=== PATIENT | female | born 1980 | race Caucasian/White ===

== ENCOUNTER 2020-12-05 02:52 | Emergency (ER) | payer MEDICAID ==
[2020-12-05] MEDS ORDERED: Diphtheria,Pertussis(Acell),Tetanus Vaccine 0.5 ML Syringe IM ONE (02:56)
[2020-12-05] MEDS ORDERED: Lidocaine 2% with EPINEPHrine 1:100,000 20 ML MDV INJECT ONE (02:56)
[2020-12-05] MEDS ORDERED: Ondansetron 4 MG Tab.DIS PO ONE (02:57)
[2020-12-05] MEDS ORDERED: Sodium Chloride 0.9% 10 ML Syringe FLUSH PRN (02:59)
[2020-12-05] MEDS ORDERED: fentaNYL 50 MCG/ML SDV IVPUSH ONE (02:59)
[2020-12-05] MEDS ORDERED: Ondansetron 4 MG/2 ML SDV IV ONE (02:59)
[2020-12-05] MEDS ORDERED: Lactated Ringers 1,000 ML IV ONE (03:06)
--- NOTE | 2020-12-05 03:11 | EDM.PDOC ---
ED HPI GENERAL MEDICAL PROBLEM - General Chief Complaint: Laceration Stated Complaint: laceration Time Seen by Provider: 12/05/20 02:52 Source of Information: Reports: Patient, Family History Limitations: Reports: No Limitations - History of Present Illness INITIAL COMMENTS - FREE TEXT/NARRATIVE: Patient comes emergency department today from home with her with concerns of a fall and head injury. Just prior to arrival earlier tonight the patient was drinking alcohol when she was at home with her when she lost her balance fell striking the right side of her head on the corner of a table. The patient is unsure if she lost consciousness although the states that she never lost consciousness and she was alert the whole time. She complains of severe pain to the right side of her head just above her ear. She has had a headache most of the day her headache is no worse now than it was earlier. She has no weakness dizziness lightheadedness. No diplopia. No vertigo. No ringing in her ears. She denies any neck pain. She denies any back pain. She denies any chest pain shortness of breath or difficulty breathing. She does admit to drinking a large amount of alcohol tonight. She has no abdominal pain. She does feel anxious nauseated and shaky. She has not been vomiting. No back pain. No other injury other than to the injury to her right scalp. She denies any change in the functionality of her upper or lower extremities. She denies any change in the sensation of her upper or lower extremities. She is unsure of when her last tetanus shot was. No Covid exposure no Covid symptoms. - Related Data Allergies Allergy/AdvReac Type Severity Reaction Status Date / Time phenol [From Chloraseptic] Allergy Rash Verified 12/05/20 02:56 sertraline Allergy Anxiety Verified 12/05/20 02:56 sodium phenolate Allergy Rash Verified 12/05/20 02:56 [From Chloraseptic] Past Medical History - Past Health History Medical/Surgical History: Denies Medical/Surgical History Respiratory History: Reports: Other (See Below) Other Respiratory History: Recent pneumonia Gastrointestinal History: Reports: GERD, Other (See Below) Other Gastrointestinal History: referr to health Genitourinary History: Reports: Other (See Below) Other Genitourinary History: Cyst removed from labia [employer] HEL[employer] History: Reports: Other [employer] HEL[employer] History: NA Musculoskeletal History: Reports: Back Pain, Chronic, Fibromyalgia Neurological History: Reports: Migraines Psychiatric History: Reports: Depression Dermatologic History: Reports: Other (See Below) Other Dermatologic History: History of shingles - Past Surgical History Female Surgical History: Reports: Other (See Below) ED ROS GENERAL - Review of Systems Review Of Systems: Comprehensive ROS is negative, except as noted in HPI. ED EXAM, SKIN/RASH Exam: See Below Text/Narrative:: She is alert appears in mild to moderate distress. Smells highly of alcoholic beverages. Exam Limited By: No Limitations General Appearance: Alert, WD/WN, No Apparent Distress Eye Exam: Bilateral Eye: EOMI, PERRL Ears: Normal External Exam, Normal Canal, Normal TMs Nose: Normal Inspection, Normal Mucosa Throat/Mouth: Normal Inspection, Normal Lips, Normal Teeth, Normal Gums, Normal Oropharynx, Normal Voice, No Airway Compromise Head: Normocephalic. No: Other (On the right parietal region just above her right ear there is about the size of a baseball area of hematoma and swelling. There is no overt bony deformities or crepitus. There is about a 2cm scalp laceration that is not bleeding at this time. Rest of the scalp is atraumatic.) Neck: Normal Inspection, Supple, Non-Tender, Full Range of Motion. No: Tender Lateral, Tender Midline Respiratory/Chest: No Respiratory Distress, Lungs Clear, Normal Breath Sounds, No Accessory Muscle Use, Chest Non-Tender Cardiovascular: Normal Peripheral Pulses, Regular Rate, Rhythm Peripheral Pulses: 2+: Radial (L), Radial (R), Posterior Tibial (L), Posterior Tibial (R), Dorsalis Pedis (L), Dorsalis Pedis (R) GI/Abdominal: Normal Bowel Sounds, Soft, Non-Tender (Female) Exam: Deferred Rectal (Female) Exam: Deferred Back Exam: Normal Inspection, Full Range of Motion Extremities: Normal Inspection, Normal Range of Motion, Non-Tender, No Pedal Edema, Normal Capillary Refill Neurological: Alert, Oriented, CN II-XII Intact, Normal Cognition, Normal Reflexes, No Motor/Sensory Deficits Psychiatric: Normal Affect, Normal Mood Skin: Warm, Dry, Intact, Normal Color, No Rash ED SKIN PROCEDURES - Laceration/Wound Repair Right Posterior Lateral Other Appearance: Subcutaneous, Linear Distal NVT: Neuro & Vascular Intact Anesthetic Type: Local Local Anesthesia - Lidocaine (Xylocaine): 2% with EPI Local Anesthetic Volume: Other (7) Skin Prep: Chlorhexidine (Hibiciens), Saline Exploration/Debridement/Repair: Wound Explored, In a Bloodless Field, Explored to Base Closed with: [place] Lac/Wound length In cm: 2.5 (posterolateral parietal scalp right. ) # of Sutures: 10 Suture Size: 3-0 # of Sutures: 2 (A small arterial scalp bleeder was tied off with chromic with good hemostasis. ) Repaired with: Chromic Tetanus Status Addressed: Yes Complications: No Course - Vital Signs Last Recorded V/S: Last Vital Signs Temp 98.3 F 12/05/20 03:00 Pulse 99 12/05/20 03:00 Resp 18 12/05/20 03:00 BP 148/94 H 12/05/20 03:00 Pulse Ox 98 12/05/20 03:00 - Orders/Labs/Meds Orders: Active Orders 24 hr Category Date Time Status Vaccines to be Administered [RC] PER UNIT ROUTINE Care 12/05/20 02:56 Active Cervical Spine wo Cont [CT] Stat Exams 12/05/20 02:56 Taken Head wo Cont [CT] Stat Exams 12/05/20 02:56 Taken Sodium Chloride 0.9% [Saline Flush] Med 12/05/20 02:59 Active 10 ml FLUSH ASDIRECTED PRN Peripheral IV Insertion Adult [OM.PC] Stat Oth 12/05/20 02:59 Ordered Medication Orders Sodium Chloride (Saline Flush) 10 ml FLUSH ASDIRECTED PRN PRN Reason: Keep Vein Open Labs: Laboratory Tests 12/05/20 12/05/20 12/05/20 Range/Units 03:25 03:25 03:25 WBC 8.2 (4.0-10.0) x10^3/uL RBC 4.41 (4.00-5.50) x10^6/uL Hgb 13.5 (12.0-16.0) g/dL Hct 40.2 (33.0-47.0) % MCV 91.2 (78.0-93.0) fL MCH 30.6 (26.0-32.0) pg MCHC 33.6 (32.0-36.0) g/dL RDW Coeff of Virgen 13.1 (10.0-15.0) % Plt Count 212 (130-400) x10^3/uL Neut % (Auto) 53.1 (50.0-80.0) % Lymph % (Auto) 38.2 (25.0-50.0) % [place] % (Auto) 7.6 (2.0-11.0) % Eos % (Auto) 1.0 (0.0-4.0) % Baso % (Auto) 0.1 L (0.2-1.2) % PT 9.7 L (9.9-12.5) SEC INR 0.9 L (2.0-3.5) APTT 26.1 (25.6-32.8) SEC Sodium 145 (136-145) mmol/L Potassium 3.4 L (3.5-5.1) mmol/L Chloride 106 (98-107) mmol/L Carbon Dioxide 25 (21-32) mmol/L Anion Gap 17.4 H (5-15) mmol/L BUN 9 (7-18) mg/dL Creatinine 0.7 (0.55-1.02) mg/dL Est Cr Clr Drug Dosing TNP Estimated GFR (MDRD) > 60 Glucose 89 (74-106) mg/dL Calcium 8.1 L (8.5-10.1) mg/dL Corrected Calcium 8.50 (8.5-10.1) mg/dL Total Bilirubin 0.2 (0.2-1.0) mg/dL AST 17 (15-37) U/L ALT 26 (14-59) U/L Alkaline Phosphatase 56 (46-116) U/L Total Protein 6.8 (6.4-8.2) g/dL Albumin 3.5 (3.4-5.0) g/dL Globulin 3.3 Albumin/Globulin Ratio 1.06 Ethyl Alcohol 210 H (0-3) mg/dL Meds: Medications Generic Name Dose Route Start Last Admin Trade Name Freq PRN Reason Stop Dose Admin Sodium Chloride 10 ml 12/05/20 02:59 Saline Flush FLUSH ASDIRECTED PRN Keep Vein Open Discontinued Medications Generic Name Dose Route Start Last Admin Trade Name Freq PRN Reason Stop Dose Admin Diphtheria/Tetanus/Acell Pertussis 0.5 ml 12/05/20 02:56 12/05/20 03:07 Boostrix IM 02/19/21 02:57 0.5 ml .ONCE ONE Administration Fentanyl 50 mcg 12/05/20 02:59 12/05/20 03:07 Fentanyl IVPUSH 12/05/20 03:00 50 mcg ONETIME ONE Administration Lactated Ringer's 1,000 mls @ 999 mls/hr 12/05/20 03:06 12/05/20 03:14 Ringers, Lactated IV 12/05/20 04:06 999 mls/hr ONETIME ONE Administration Lidocaine/Epinephrine 20 ml 12/05/20 02:56 12/05/20 03:16 Xylocaine 2% With Epinephrine 1:100,000 INJECT 12/05/20 02:57 5 ml ONETIME ONE Administration Ondansetron HCl 4 mg 12/05/20 02:57 Zofran Odt PO 12/05/20 02:58 ONETIME ONE Ondansetron HCl 4 mg 12/05/20 02:59 12/05/20 03:07 Zofran IV 12/05/20 03:00 4 mg ONETIME ONE Administration - Radiology Interpretation Free Text/Narrative:: CT of the head per radiology no acute intracranial findings. Right posterior lateral parietal scalp hematoma CT cervical spine per radiology no acute fracture or dislocation. Degenerative changes. - Re-Assessments/Exams Free Text/Narrative Re-Assessment/Exam: 12/05/20 03:11 Due to her nausea and shakiness IV was established. Labs are drawn. Zofran 4 mg IV push. Fentanyl 50 mcg IV push for pain. Tetanus immunization was updated. 12/05/20 04:30 Laboratory evaluation with a normal CBC. Normal coags. Potassium 3.4 normal creatinine normal liver enzymes Alcohol level 210. She had good improvement with her pain. Her nausea was controlled. Please see the procedure note for the repair of the scalp laceration. There was a small arterial bleeder and there that I did have to tie off with some chromic sutures. Jon for the approximation of the scalp laceration. Departure - Departure Time of Disposition: 04:31 Disposition: Home, Self-Care 01 Clinical Impression: Laceration of scalp Qualifiers: Encounter type: initial encounter Qualified Code(s): S01.01XA - Laceration without foreign body of scalp, initial encounter Acute alcohol intoxication Qualifiers: Complication of substance-induced condition: uncomplicated Qualified Code(s): F10.920 - Alcohol use, unspecified with intoxication, uncomplicated - Discharge Information Forms: ED Department Discharge Additional Instructions: Ice to the scalp laceration to help with swelling. Lots of fluids over the next few hours. Tylenol and or Ibuprofen as needed for pain. Cleanse the wound twice daily with soap and water. Bacitracin and bandage until healed. Watch for signs of infection. Running water over the laceration is fine, no soaking in water. [place] out in 5 days with your PCP. If a hard scab or crust does develop along the laceration site. Use 50% water and 50% Hydrogen Peroxide to remove the scab and then bacitracin and bandage. Return to the ED if new or worsening symptoms especially is neuro changes or recurrent vomiting. Recheck in the clinic in the next few days if any concerns. Sepsis Event Note (ED) - Focused Exam Vital Signs: Vital Signs Temp Pulse Resp BP Pulse Ox 12/05/20 03:00 98.3 F 99 18 148/94 H 98 - My Orders Last 24 Hours: My Active Orders 12/05/20 02:56 Vaccines to be Administered [RC] PER UNIT ROUTINE Cervical Spine wo Cont [CT] Stat Head wo Cont [CT] Stat 12/05/20 02:59 Sodium Chloride 0.9% [Saline Flush] 10 ml FLUSH ASDIRECTED PRN Peripheral IV Insertion Adult [OM.PC] Stat - Assessment/Plan Last 24 Hours: My Active Orders 12/05/20 02:56 Vaccines to be Administered [RC] PER UNIT ROUTINE Cervical Spine wo Cont [CT] Stat Head wo Cont [CT] Stat 12/05/20 02:59 Sodium Chloride 0.9% [Saline Flush] 10 ml FLUSH ASDIRECTED PRN Peripheral IV Insertion Adult [OM.PC] Stat
[2020-12-05 03:37] VITALS: BP 148/94; PULSE 99
[2020-12-05 03:51] LABS: CHLORIDE,CL 106 mmol/L (98-107); SODIUM,NA 145 mmol/L (136-145)
[2020-12-05 03:57] LABS: PTT,PARTIAL THROMBOPLSTIN TIME 26.1 SEC (25.6-32.8)
[2020-12-05 04:04] LABS: ANION GAP 17.4 mmol/L (5-15)
[2020-12-05] MEDS ORDERED: Ketorolac 30 MG/ML SDV IVPUSH ONE (04:38)
--- NOTE | 2020-12-05 08:04 | CT ---
[id number] CT/CT Cervical Spine WO IV EXAM: CT Cervical Spine WO IV INDICATION: FALL, HEAD INJURY, INTOXICATION COMPARISON: None. DISCUSSION: No fracture or compression deformity. Vertebral bodies remain in normal alignment. Spondylosis. No prevertebral soft tissue edema. Lung apices are clear. IMPRESSION: No acute findings in the cervical spine. Nash Page MD 12/05/20 [id number] Thank you for allowing us to participate in the care of your patient.
--- NOTE | 2020-12-05 08:20 | CT ---
[id number] CT/CT Head WO IV EXAM: CT Head WO IV CLINICAL DATA: FALL,INTOXICATION,RIGHT PARIETAL SCALP MOD HEMATOMA COMPARISON STUDY: 2011. FINDINGS: No intracranial hemorrhage, extra-axial fluid collection, mass, or acute ischemia. No hydrocephalus. Small right parietal scalp contusion overlying soft tissue laceration. Calvarium intact. Paranasal sinuses and mastoid air cells are clear. IMPRESSION: No acute intracranial findings. Nash Page MD 12/05/20 [id number] Thank you for allowing us to participate in the care of your patient.
== END 2020-12-05 05:25 | disposition home or self-care (01) ==
LOC: VM.ED 02:52
DX: S09.0XXA Injury of blood vessels of head, not elsewhere classified, initial encounter (principal); S01.01XA Laceration without foreign body of scalp, initial encounter; F10.120 Alcohol abuse with intoxication, uncomplicated; Z91.048 Other nonmedicinal substance allergy status; Z88.8 Allergy status to other drugs, medicaments and biological substances; Z23 Encounter for immunization; W19.XXXA Unspecified fall, initial encounter; Y92.009 Unspecified place in unspecified non-institutional (private) residence as the place of occurrence of the external cause
CPT/HCPCS: 12001; 36415; 70450; 72125; 80053; 80307; 85025; 85610; 85730; 90471; 90715; 96374; 96375; 99284; 99284-25; J1885; J2405; J3010; J7120

== ENCOUNTER 2022-08-31 09:04 | Emergency (ER) | payer MEDICAID ==
[2022-08-31] MEDS ORDERED: Sodium Chloride 0.9% 10 ML Syringe FLUSH PRN (09:15)
[2022-08-31] MEDS ORDERED: GI Cocktail Oral Solution 30 ML PO ONE (09:24)
[2022-08-31] MEDS ORDERED: fentaNYL 50 MCG/ML SDV IVPUSH ONE ×2 (09:24→10:35)
[2022-08-31] MEDS ORDERED: Sodium Chloride 0.9% 1,000 ML IV ONE (09:27)
[2022-08-31] MEDS ORDERED: Ondansetron 4 MG/2 ML SDV IVPUSH ONE ×2 (09:29→10:35)
[2022-08-31] MEDS ORDERED: Iopamidol 755 Mg/ML 100 ML Bottle IVPUSH ONE (09:31)
[2022-08-31 09:52] LABS: ANION GAP 13.7 mmol/L (5-15); CHLORIDE,CL 104 mmol/L (98-107); ESTIMATED GFR 96 mL/min (>=60); SODIUM,NA 140 mmol/L (136-145)
[2022-08-31 10:39] VITALS: BP 131/80; PULSE 88
[2022-08-31] MEDS ORDERED: HYDROmorphone 1 MG/ML Syringe IVPUSH ONE (12:19)
== END 2022-08-31 15:06 | disposition home or self-care (01) ==
LOC: SUPCPDRO 09:04 → VM.ED 09:04
DX: K91.5 Postcholecystectomy syndrome (principal); Z88.8 Allergy status to other drugs, medicaments and biological substances; Z79.899 Other long term (current) drug therapy
CPT/HCPCS: 36415; 71275; 80053; 82150; 82550; 83690; 83880; 84484; 85025; 93005; 96361; 96374; 96375; 96376; 99285; A9270; J1170; J2405; J3010; J7030; Q9967